=== PATIENT | male | born 1975 | race Caucasian/White ===

== ENCOUNTER 2020-09-05 15:59 | Outpatient (CLI) | payer OTHER, SELFPAY | END 2020-09-05 16:00 | disposition home or self-care (01) | LOC: ANHCOVIDVC 15:59 | PROVIDERS: PCP Family Medicine | DX: Z23 Encounter for immunization (principal) | CPT/HCPCS: 0001A; 91300 ==

== ENCOUNTER 2020-09-26 16:00 | Outpatient (CLI) | payer OTHER, SELFPAY | END 2020-09-26 16:01 | disposition home or self-care (01) | LOC: ANHCOVIDVC 16:00 | PROVIDERS: PCP Family Medicine | DX: Z23 Encounter for immunization (principal) | CPT/HCPCS: 0002A; 91300 ==

== ENCOUNTER 2021-04-22 10:57 | Emergency (ER) | payer OTHER, SELFPAY ==
[2021-04-22 11:09] VITALS: BP 148/100; PULSE 71; RESP 16; TEMP 36.4; O2SAT 98
--- NOTE | 2021-04-22 11:33 | ED.WOUNDLAC ---
HPI - Wound/Laceration General Chief Complaint: Wound/Laceration Stated Complaint: Facial wounds Source: patient and RN notes reviewed Limitations: no limitations History of Present Illness HPI narrative: The patient, a drinker/smoker on several routine meds, presents for a tetanus shot and wound check. States he slipped and fell while camping over the weekend, on Thursday night. He complains of mild pain from several abrasions on his forehead and nasal bridge and mild occipital headache [without neck pain]. No LOC, diplopia, subconjunctival blood, dental injury, epistaxis now-though he did feel faint briefly afterwards, and had nosebleed that resolved then. Symptoms are mild, worse with palpation, somewhat better with the OTC triple antibiotic cream has been putting on. Discussed will do good wound care, but cannot suture at this time the deepest abrasion on the bridge of his nose [and he declines delayed primary closure]. Related Data Home Medications Medication Instructions Recorded Confirmed escitalopram oxalate 10 mg PO DAILY 04/22/21 04/22/21 Allergies Allergy/AdvReac Type Severity Reaction Status Date / Time No Known Allergies Allergy Unknown Verified 04/22/21 11:04 Review of Systems Review of Systems: General/Constitutional: No weight loss,fever Eyes: N0: Redness,discharge Ears/Nose/Throat: No: Epistaxis,ear discharge Respiratory: Denies: Hemoptysis Gastrointestinal: No Vomiting, Bleeding-rectal Skin: No Lumps, eruption Neurologic: No Focal Weakness,Sz Hematologic: Denies: Petechiae/Purpura Psychiatric: No: Suicida ideationl All Other Systems: Reviewed and Negative [facility] Past Medical History Medical History Benign mole BMI 26.0-26.9,adult BMI 29.0-29.9,adult BMI 30.0-30.9,adult Tobacco abuse Family History Family History Father Hypertension Grandparent Cerebrovascular accident Family history of lung cancer Social History Social History Smoking packs per day: 0.25 Smoking cigarettes per day: 5.0 Years smoked: 10 Smoking pack-years: 2.50 Smoking status: Current some day smoker Alcohol intake: current Drinks per week: 25 Substance use: never Substance use type: does not use Comments At time of signature, agree with nursing past medical, surgical, social and family history. There is no relevant family history pertinent to the presenting complaint Exam Narrative: General Appearance: Well appearing, Well nourished, No distress Skin: Warm, Dry, multiple small abrasions, superficial punctures of lower forehead above eyebrows and nasal bridge EYE: PERRLA , EOMI, no subconjunctival blood, step-off, hyphema, hypesthesia Ears: External ear normal, Auditory canal normal Nose: Normal nose, Nares clear, no septal hematoma Mouth/Throat: Normal appearing, Normal lips Neck: Supple, No adenopathy, no midline tenderness, SROM/ F AROM Respiratory: Airway patent, No respiratory distress Neurological: A&O x3, CN II-X intact Psychiatric: Normal mood, Normal affect Course Vital Signs Vital signs: Vital Signs Temperature 97.6 F 04/22/21 11:09 Pulse Rate 71 04/22/21 11:09 Respiratory Rate 16 04/22/21 11:09 Blood Pressure 148/100 H 04/22/21 11:09 Pulse Oximetry 98 04/22/21 11:09 Temperature 97.6 F 04/22/21 11:09 Pulse Rate 71 04/22/21 11:09 Respiratory Rate 16 04/22/21 11:09 Blood Pressure 148/100 H 04/22/21 11:09 Pulse Oximetry 98 04/22/21 11:09 Discharge Plan Discharge Clinical Impression: Hx of abrasion, Encounter for post-traumatic wound check Patient Disposition: Home, Self-Care Condition: Stable Instructions: Abrasion (ED) Prescriptions: New mupirocin 2 % ointment 1 applic TOPICAL TID Qty: 30 RF: 0 cephalexin 500 mg capsule 1,000 mg PO Q12H
[2021-04-22] MEDS: TETANUS,DIPHTHERIA,AC PERTUSSIS ADULT (0.5 ML) BOOSTRIX IM (11:45)
== END 2021-04-22 11:50 | disposition home or self-care (01) ==
PROVIDERS: Emergency Provider Emergency Medicine; PCP Family Medicine
DX: S00.81XA Abrasion of other part of head, initial encounter (principal); S00.31XA Abrasion of nose, initial encounter; W01.0XXA Fall on same level from slipping, tripping and stumbling without subsequent striking against object, initial encounter; Z23 Encounter for immunization; F17.210 Nicotine dependence, cigarettes, uncomplicated
CPT/HCPCS: 90471; 90715; 99213; G0463